=== PATIENT | male | born 1985 | race African-American/Black ===

== ENCOUNTER 2021-05-14 11:04 | Emergency (ER) | payer OTHER ==
[~2021-05-14] VITALS: Ht 170.2 cm; Wt 75.0 kg
[2021-05-14 11:09] VITALS: BP 121/68
[2021-05-14] MEDS ORDERED: TETANUS, DIPHTHERIA, PERTUSSIS VAC/PF 0.5ML (>10YR OLD) IM ONE (11:45)
[2021-05-14] MEDS ORDERED: BACITRACIN ZINC OINT UDPKT TOP ONE (11:45)
[2021-05-14] MEDS ORDERED: LIDOCAINE HCL/EPINEPHRINE 1%-EPI 1:100,000 20 ML VIAL INFIL ONE (11:45)
[2021-05-14] MEDS ORDERED: LIDOCAINE HCL/EPINEPHRINE 1%-EPI 1:100,000 10 ML VIAL INFIL ONE (13:15)
[2021-05-14] MEDS ORDERED: SULF1TAB48 MT (14:23)
[2021-05-14] MEDS ORDERED: CEPH500C2 MT (14:24)
== END 2021-05-14 14:33 | disposition home or self-care (01) ==
LOC: ER 11:04
DX: R59.0 Localized enlarged lymph nodes (principal)
CPT/HCPCS: 90715; 99283; J3490; Z7610